=== PATIENT | female | born 1945 | race Caucasian/White ===

== ENCOUNTER 2018-04-09 12:19 | Outpatient (CLI) | payer MEDICARE, MEDICAID | END 2018-04-09 12:20 | disposition home or self-care (01) | LOC: BICMAMMO 12:19 | PROVIDERS: ATTEND Nurse Practitioner Family | DX: Z12.31 Encounter for screening mammogram for malignant neoplasm of breast (principal); R92.1 Mammographic calcification found on diagnostic imaging of breast; Z80.3 Family history of malignant neoplasm of breast; Z98.890 Other specified postprocedural states | CPT/HCPCS: 77063; 77067 ==

== ENCOUNTER 2019-02-20 09:50 | Day surgery (SDC) | payer MEDICARE ==
[2019-02-19 16:08] VITALS: BMI 34.3
[2019-02-20] MEDS ORDERED: Lidocaine 1% (PF) 30 ML VIAL ONE ×2 (10:33→11:48)
[2019-02-20 12:02] LABS: Prothrombin Time 12.8 SEC (12.0-14.7)
[2019-02-20] MEDS ORDERED: Propofol 1,000 MG/100 ML VIAL IV ONE (12:36)
[2019-02-20] MEDS ORDERED: Phenylephrine HCL 10 MG/ML VIAL ONE (12:36)
[2019-02-20] MEDS ORDERED: Fentanyl 100 MCG/2 ML VIAL ONE (12:50)
== END 2019-02-20 16:40 | disposition home or self-care (01) ==
LOC: CCL 09:50
PROVIDERS: ATTEND Internal Medicine Cardiovascular Disease
PROC: 0JPT0PZ Removal of Cardiac Rhythm Related Device from Trunk Subcutaneous Tissue and Fascia, Open Approach (ICD-10-PCS; principal; 2019-02-20)
PROC: 0JH609Z Insertion of Cardiac Resynchronization Defibrillator Pulse Generator into Chest Subcutaneous Tissue and Fascia, Open Approach (ICD-10-PCS; 2019-02-20)
DX: Z45.02 Encounter for adjustment and management of automatic implantable cardiac defibrillator (principal); I11.0 Hypertensive heart disease with heart failure; I50.22 Chronic systolic (congestive) heart failure; I25.5 Ischemic cardiomyopathy; I44.7 Left bundle-branch block, unspecified; I25.10 Atherosclerotic heart disease of native coronary artery without angina pectoris; E11.9 Type 2 diabetes mellitus without complications; Z79.02 Long term (current) use of antithrombotics/antiplatelets; Z79.82 Long term (current) use of aspirin; Z79.899 Other long term (current) drug therapy; Z88.5 Allergy status to narcotic agent; Z88.8 Allergy status to other drugs, medicaments and biological substances; Z91.041 Radiographic dye allergy status; Z95.1 Presence of aortocoronary bypass graft; Z95.5 Presence of coronary angioplasty implant and graft
CPT/HCPCS: 33264; 36416; 85610; 85730; 93641; C1882; J0690; J2001; J2370; J2704; J3010; J3490

== ENCOUNTER 2019-04-22 10:08 | Outpatient (CLI) | payer MEDICAID, MEDICARE ==
--- NOTE | 2019-04-22 11:52 | RAD ---
RIGHT RIBS 2 VIEWS: Date: 04/22/19 HISTORY: Right rib pain. FINDINGS: Arthrosis changes of the AC joint with undersurface spurring of the lateral acromion and arthrosis ch anges of the glenohumeral joint. 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 Slight blunting in t he right costophrenic angle. No pneumothorax or pleural effusion. No overt acute rib fracture. IMPRESSION: 1. No convincing evidence for acute right rib fracture. 2. Evidence for a large gallstone. POS: [facility]
== END 2019-04-22 10:09 | disposition home or self-care (01) ==
LOC: BICRAD 10:08
PROVIDERS: ATTEND Family Medicine
DX: R07.81 Pleurodynia (principal); K80.20 Calculus of gallbladder without cholecystitis without obstruction

== ENCOUNTER 2019-04-29 15:23 | Outpatient (CLI) | payer MEDICARE ==
--- NOTE | 2019-04-29 15:49 | MMO ---
Bilateral MAMMO Bilat Screen [facility]. CLINICAL HISTORY: Patient is 74 years old and is seen for screening. The patient has the following family history of breast cancer: cousin female. The patient has no personal history of cancer. The patient has a history of left Excisional Biopsy in 2004 - fibroadenoma. VIEWS: The views performed were: bilateral craniocaudal with tomosynthesis and bilateral mediolateral oblique with tomosynthesis. FILMS COMPARED: The present examination has been compared to prior imaging studies performed at [facility] on 12/04/2011, 12/11/2012, 12/06/2016 and 04/09/2018. This study has been interpreted with the assistance of computer-aided detection. MAMMOGRAM FINDINGS: The breasts are heterogeneously dense, which could obscure a lesion on mammography. Finding 1: There are stable post operative changes seen in the left breast. Finding 2: There are stable benign appearing calcifications seen in both breasts. There are no suspicious masses, suspicious calcifications, or new areas of architectural distortion. IMPRESSION: THERE IS NO MAMMOGRAPHIC EVIDENCE OF MALIGNANCY. A ROUTINE FOLLOW-UP MAMMOGRAM IN 1 YEAR IS RECOMMENDED. THE RESULTS OF THIS EXAM WERE SENT TO THE PATIENT. ACR BI-RADS Category 2 - Benign finding MAMMOGRAPHY NOTE: 1. A negative mammogram report should not delay a biopsy if a dominant of clinically suspicious mass is present. 2. Approximately 10% to 15% of breast cancers are not detected by mammography. 3. Adenosis and dense breasts may obscure an underlying neoplasm. Reported by: DANI MCFADDEN MD Electonically Signed: [id number]
== END 2019-04-29 15:24 | disposition home or self-care (01) ==
LOC: BICMAMMO 15:23
PROVIDERS: ATTEND Nurse Practitioner Family
DX: Z12.31 Encounter for screening mammogram for malignant neoplasm of breast (principal); Z80.3 Family history of malignant neoplasm of breast
CPT/HCPCS: 77063; 77067

== ENCOUNTER 2022-02-01 21:45 | Observation (INO) | payer OTHER, MEDICAID ==
[2022-02-01 22:30] VITALS: BMI 28.4
[2022-02-01] MEDS ORDERED: Zolpidem Tartrate 5 MG TAB PO SCH (23:45)
[2022-02-02] MEDS ORDERED: Ondansetron PF 4 MG/2 ML Vial IVP PRN (06:09)
[2022-02-02] MEDS ORDERED: Ondansetron ODT 4 MG TAB PO PRN (06:09)
[2022-02-02] MEDS ORDERED: Dextrose 50% Abboject 50 ML SYRINGE SLOW IVP PRN ×2 (06:11)
[2022-02-02] MEDS ORDERED: Dextrose 5% in Water 1,000 ML IV PRN (06:11)
[2022-02-02] MEDS ORDERED: HumaLOG 300 UNITS/3 ML VIAL SC PRN ×3 (06:11)
[2022-02-02 06:41] LABS: #Lymphocytes 0.9 thou/uL (1.20-3.40); #Monocytes 0.1 thou/uL (0.11-0.59); #Neutrophils 4.3 thou/uL (1.40-6.50); %Basophils 0.4 % (0.0-1.0); %Eosinophils 0.2 % (0.0-10.0); %Lymphocytes 16.3 % (21.0-51.0); %Monocytes 1.6 % (0.0-10.0); %Neutrophils 81.5 % (42.0-75.0); Hemoglobin 14.6 g/dL (12.0-16.0); Mean Corpuscular HGB CONC 32.8 g/dL (32.0-36.0); Mean Corpuscular Volume 94.5 fL (78.0-98.0); Mean Platelet Volume 8.2 fL (7.4-10.4); Platelet Count 197 thou/uL (130-400); RBC Distribution Width 11.3 % (11.5-14.5); White Blood Cell (WBC) Count 5.3 thou/uL (4.8-10.8)
[2022-02-02 06:58] LABS: Glucose 539 mg/dL (83-110)
[2022-02-02 07:01] LABS: Anion Gap 19 mmol/L (10-20); BUN (Urea Nitrogen) 26 mg/dL (9.8-20.1); Calc. Creatinine Clearance 32 mL/min (70-130); Carbon Dioxide 25 mmol/L (23-31); Chloride 96 mmol/L (98-107); Estimated GFR 36; Glucose 539 mg/dL (83-110); Potassium 3.7 mmol/L (3.5-5.1); Sodium 136 mmol/L (136-145)
[2022-02-02] MEDS ORDERED: HumaLOG 300 UNITS/3 ML VIAL SC SCH (08:15)
[2022-02-02] MEDS ORDERED: traMADol HCl 50 MG TAB PO PRN (08:16)
[2022-02-02] MEDS ORDERED: Insulin Glargine 30 UNITS/0.3 ML VIAL SC SCH (09:00)
[2022-02-02] MEDS ORDERED: traZODone HCl 50 MG TAB PO SCH (09:00)
[2022-02-02] MEDS ORDERED: Pravastatin Sodium 20 MG TAB PO SCH (09:00)
[2022-02-02] MEDS ORDERED: Lidocaine 5% Patch TD SCH (09:00)
[2022-02-02] MEDS ORDERED: Enoxaparin Sodium 40 MG/0.4 ML SYRINGE SC SCH (09:00)
[2022-02-02] MEDS ORDERED: Clopidogrel Bisulfate 75 MG TAB PO SCH (09:00)
[2022-02-02] MEDS ORDERED: Furosemide 20 MG/2 ML VIAL SLOW IVP SCH (14:00)
[2022-02-02 16:49] VITALS: BP 122/58; TEMP 97.4
[2022-02-02] MEDS ORDERED: Transdermal Patch Removal TOP SCH (21:00)
[2022-02-02] MEDS ORDERED: Atorvastatin Calcium 10 MG TAB PO SCH (21:00)
[2022-02-02] MEDS ORDERED: Aspirin 81 mg Enteric Coated Tablet PO SCH (21:00)
[2022-02-02] MEDS ORDERED: Zolpidem Tartrate 5 MG TAB PO SCH ×2 (21:00)
[2022-02-02] MEDS ORDERED: Enoxaparin Sodium 30 MG/0.3 ML SYRINGE SC SCH (21:00)
== END 2022-02-02 18:42 | disposition home or self-care (01) ==
LOC: 2SW 22:24
PROVIDERS: ADMIT Internal Medicine; ATTEND Internal Medicine
DX: M54.50 Low back pain, unspecified (principal); I11.0 Hypertensive heart disease with heart failure; I50.23 Acute on chronic systolic (congestive) heart failure; E11.65 Type 2 diabetes mellitus with hyperglycemia; I25.10 Atherosclerotic heart disease of native coronary artery without angina pectoris; N17.9 Acute kidney failure, unspecified; E78.5 Hyperlipidemia, unspecified; I08.8 Other rheumatic multiple valve diseases; Z79.02 Long term (current) use of antithrombotics/antiplatelets; Z79.4 Long term (current) use of insulin; Z79.82 Long term (current) use of aspirin; Z79.899 Other long term (current) drug therapy; Z88.5 Allergy status to narcotic agent; Z88.8 Allergy status to other drugs, medicaments and biological substances; Z91.013 Allergy to seafood; Z91.041 Radiographic dye allergy status; Z95.1 Presence of aortocoronary bypass graft; Z95.810 Presence of automatic (implantable) cardiac defibrillator
CPT/HCPCS: 36415; 36416; 80048; 85025; 93306; 96374; G0378; J1815; J1940

== ENCOUNTER 2022-10-08 01:08 | Emergency (ER) | payer OTHER | END 2022-10-08 03:35 | disposition home or self-care (01) | LOC: ERS 01:08 | DX: S83.92XA Sprain of unspecified site of left knee, initial encounter (principal); S93.502A Unspecified sprain of left great toe, initial encounter; I25.10 Atherosclerotic heart disease of native coronary artery without angina pectoris; E11.9 Type 2 diabetes mellitus without complications; E78.5 Hyperlipidemia, unspecified; I10 Essential (primary) hypertension; W18.30XA Fall on same level, unspecified, initial encounter | CPT/HCPCS: 70450; 72125 ==

== ENCOUNTER 2022-10-29 18:08 | Inpatient (IN) | payer OTHER, MEDICAID ==
[2022-10-29 18:57] LABS: #Basophils 0.1 thou/uL (0.0-0.2); #Eosinphils 0.2 thou/uL (0.0-0.7); #Lymphocytes 2.7 thou/uL (1.20-3.40); #Monocytes 0.6 thou/uL (0.11-0.59); #Neutrophils 4.2 thou/uL (1.40-6.50); %Basophils 1.2 % (0.0-1.0); %Lymphocytes 34.5 % (21.0-51.0); %Monocytes 7.7 % (0.0-10.0); %Neutrophils 54.7 % (42.0-75.0); Hemoglobin 14.1 g/dL (12.0-16.0); Mean Corpuscular HGB CONC 32.5 g/dL (32.0-36.0); Mean Corpuscular Hemoglobin 30.3 pg (27.0-31.0); Mean Corpuscular Volume 93.1 fl (78.0-98.0); Mean Platelet Volume 8.2 fL (7.4-10.4); Platelet Count 243 10x3/uL (130-400); Red Blood Cell (RBC) Count 4.65 mill/uL (4.20-5.40); White Blood Cell (WBC) Count 7.8 10x3/uL (4.8-10.8)
[2022-10-29 19:20] LABS: ALT (SGPT) 9 U/L (8-55); AST (SGOT) 17 U/L (5-34); Albumin 3.8 g/dL (3.4-4.8); Alkaline Phosphatase 81 U/L (40-110); Anion Gap 15 mmol/L (10-20); BUN (Urea Nitrogen) 27 mg/dL (9.8-20.1); Bilirubin, Total 0.5 mg/dL (0.2-1.2); Calc. Creatinine Clearance 0 mL/min (70-130); Calcium 9.4 mg/dL (7.8-10.44); Carbon Dioxide 31 mmol/L (23-31); Chloride 97 mmol/L (98-107); Estimated GFR 51; Globulin 4.2 g/dL (2.4-3.5); Glucose 297 mg/dL (83-110); Potassium 4.2 mmol/L (3.5-5.1); Sodium 139 mmol/L (136-145)
[2022-10-29 20:11] LABS: CKMB 1.1 ng/mL (0-6.6)
[2022-10-29] MEDS ORDERED: Furosemide 40 MG/4 ML VIAL ONE (20:42)
[2022-10-29] MEDS ORDERED: Aspirin Chewable 81 MG TAB ONE (20:43)
[2022-10-29] MEDS ORDERED: Zolpidem Tartrate 5 MG TAB PO SCH (21:30)
[2022-10-29 22:33] LABS: Troponin I 0.034 ng/mL (< 0.028)
[2022-10-30 01:58] LABS: Troponin I 0.051 ng/mL (< 0.028)
[2022-10-30] MEDS ORDERED: Ondansetron ODT 4 MG TAB PO PRN (02:20)
[2022-10-30] MEDS ORDERED: Ondansetron PF 4 MG/2 ML Vial IVP PRN (02:20)
[2022-10-30] MEDS ORDERED: Acetaminophen 325 MG TAB PO PRN (02:20)
[2022-10-30 05:31] LABS: #Basophils 0.1 thou/uL (0.0-0.2); #Eosinphils 0.2 thou/uL (0.0-0.7); #Lymphocytes 3.5 thou/uL (1.20-3.40); #Monocytes 0.7 thou/uL (0.11-0.59); #Neutrophils 3.7 thou/uL (1.40-6.50); %Basophils 1.1 % (0.0-1.0); %Eosinophils 2.3 % (0.0-10.0); %Monocytes 8.3 % (0.0-10.0); %Neutrophils 45.3 % (42.0-75.0); Hemoglobin 13.8 g/dL (12.0-16.0); Mean Corpuscular HGB CONC 32.5 g/dL (32.0-36.0); Mean Corpuscular Hemoglobin 30.4 pg (27.0-31.0); Mean Corpuscular Volume 93.6 fl (78.0-98.0); Mean Platelet Volume 8.8 fL (7.4-10.4); Platelet Count 109 10x3/uL (130-400); RBC Distribution Width 11.9 % (11.5-14.5); Red Blood Cell (RBC) Count 4.53 mill/uL (4.20-5.40); White Blood Cell (WBC) Count 8.2 10x3/uL (4.8-10.8)
[2022-10-30] MEDS: Furosemide 40 MG/4 ML VIAL SLOW IVP SCH ×2 (05:50→13:08)
[2022-10-30 06:05] LABS: Anion Gap 18 mmol/L (10-20); BUN (Urea Nitrogen) 26 mg/dL (9.8-20.1); Calc. Creatinine Clearance 64 mL/min (70-130); Calcium 8.7 mg/dL (7.8-10.44); Carbon Dioxide 22 mmol/L (23-31); Chloride 99 mmol/L (98-107); Estimated GFR 75; Glucose 233 mg/dL (83-110); Magnesium 1.7 mg/dL (1.6-2.6); Potassium 4.7 mmol/L (3.5-5.1); Sodium 134 mmol/L (136-145)
[2022-10-30] MEDS ORDERED: Dextrose 5% in Water 1,000 ML IV PRN (06:10)
[2022-10-30] MEDS ORDERED: Dextrose 50% Abboject 50 ML SYRINGE SLOW IVP PRN (06:10)
[2022-10-30] MEDS: HumaLOG 300 UNITS/3 ML VIAL SC PRN ×4 (06:27→21:06)
[2022-10-30] MEDS ORDERED: Pregabalin 50 MG CAP PO SCH ×2 (06:30→15:00)
[2022-10-30] MEDS ORDERED: Gabapentin 300 MG CAP PO SCH (09:30)
[2022-10-30] MEDS: Clopidogrel Bisulfate 75 MG TAB PO SCH (09:50)
[2022-10-30] MEDS: Carvedilol 6.25 MG TAB PO SCH (09:50)
[2022-10-30] MEDS: Insulin Glargine 30 UNITS/0.3 ML VIAL SC SCH (09:51)
[2022-10-30 16:03] LABS: Troponin I 0.045 ng/mL (< 0.028)
[2022-10-30] MEDS: Aspirin 81 mg Enteric Coated Tablet PO SCH (21:07)
[2022-10-30] MEDS: Gabapentin 300 MG CAP PO SCH (21:07)
[2022-10-30] MEDS: Zolpidem Tartrate 5 MG TAB PO SCH (21:07)
[2022-10-30] MEDS: Simvastatin 10 MG TAB PO SCH (21:08)
[2022-10-31 05:25] LABS: #Basophils 0.1 thou/uL (0.0-0.2); #Eosinphils 0.2 thou/uL (0.0-0.7); #Lymphocytes 3.5 thou/uL (1.20-3.40); #Monocytes 0.7 thou/uL (0.11-0.59); #Neutrophils 4.4 thou/uL (1.40-6.50); %Basophils 0.9 % (0.0-1.0); %Eosinophils 2.2 % (0.0-10.0); %Lymphocytes 39.1 % (21.0-51.0); %Monocytes 8.2 % (0.0-10.0); %Neutrophils 49.7 % (42.0-75.0); Mean Corpuscular HGB CONC 33.7 g/dL (32.0-36.0); Mean Corpuscular Hemoglobin 31.4 pg (27.0-31.0); Mean Corpuscular Volume 93.2 fl (78.0-98.0); Mean Platelet Volume 8.1 fL (7.4-10.4); Platelet Count 237 10x3/uL (130-400); Red Blood Cell (RBC) Count 4.45 mill/uL (4.20-5.40); White Blood Cell (WBC) Count 8.9 10x3/uL (4.8-10.8)
[2022-10-31 05:38] LABS: Anion Gap 14 mmol/L (10-20); BUN (Urea Nitrogen) 37 mg/dL (9.8-20.1); Calc. Creatinine Clearance 54 mL/min (70-130); Calcium 9.1 mg/dL (7.8-10.44); Carbon Dioxide 31 mmol/L (23-31); Chloride 98 mmol/L (98-107); Estimated GFR 62; Glucose 165 mg/dL (83-110); Potassium 3.5 mmol/L (3.5-5.1); Sodium 139 mmol/L (136-145)
[2022-10-31] MEDS: HumaLOG 300 UNITS/3 ML VIAL SC PRN ×2 (05:41→17:07)
[2022-10-31] MEDS: Furosemide 40 MG/4 ML VIAL SLOW IVP SCH ×2 (05:41→14:23)
[2022-10-31] MEDS: Insulin Glargine 30 UNITS/0.3 ML VIAL SC SCH (09:38)
[2022-10-31] MEDS: Carvedilol 6.25 MG TAB PO SCH (09:38)
[2022-10-31] MEDS: Clopidogrel Bisulfate 75 MG TAB PO SCH (09:38)
[2022-10-31] MEDS: Gabapentin 300 MG CAP PO SCH ×2 (09:40→21:43)
[2022-10-31] MEDS: Carvedilol 3.125 MG TAB PO SCH (17:07)
[2022-10-31] MEDS: Sacubitril 24MG/Valsartan 26 MG TAB PO SCH (21:43)
[2022-10-31] MEDS: Simvastatin 10 MG TAB PO SCH (21:43)
[2022-10-31] MEDS: Aspirin 81 mg Enteric Coated Tablet PO SCH (21:44)
[2022-10-31] MEDS: Zolpidem Tartrate 5 MG TAB PO SCH (21:44)
[2022-11-01 05:30] LABS: Anion Gap 18 mmol/L (10-20); BUN (Urea Nitrogen) 44 mg/dL (9.8-20.1); Calc. Creatinine Clearance 54 mL/min (70-130); Calcium 8.8 mg/dL (7.8-10.44); Carbon Dioxide 25 mmol/L (23-31); Chloride 98 mmol/L (98-107); Estimated GFR 64; Glucose 174 mg/dL (83-110); Magnesium 2.1 mg/dL (1.6-2.6); Sodium 137 mmol/L (136-145)
[2022-11-01] MEDS: Furosemide 40 MG/4 ML VIAL SLOW IVP SCH ×2 (05:41→14:36)
[2022-11-01] MEDS: Insulin Glargine 30 UNITS/0.3 ML VIAL SC SCH (09:44)
[2022-11-01] MEDS: Gabapentin 300 MG CAP PO SCH ×2 (09:45→20:35)
[2022-11-01] MEDS: Sacubitril 24MG/Valsartan 26 MG TAB PO SCH ×2 (09:45→20:36)
[2022-11-01] MEDS: Clopidogrel Bisulfate 75 MG TAB PO SCH (09:45)
[2022-11-01] MEDS: Empagliflozin 10 MG TAB PO SCH (09:45)
[2022-11-01] MEDS: Carvedilol 3.125 MG TAB PO SCH ×2 (09:45→17:57)
[2022-11-01] MEDS: HumaLOG 300 UNITS/3 ML VIAL SC PRN ×3 (13:02→20:37)
[2022-11-01] MEDS: Zolpidem Tartrate 5 MG TAB PO SCH (20:36)
[2022-11-01] MEDS: Aspirin 81 mg Enteric Coated Tablet PO SCH (20:36)
[2022-11-01] MEDS: Simvastatin 10 MG TAB PO SCH (20:37)
[2022-11-02] MEDS: Furosemide 40 MG/4 ML VIAL SLOW IVP SCH ×2 (05:56→13:22)
[2022-11-02] MEDS: HumaLOG 300 UNITS/3 ML VIAL SC PRN ×2 (06:46→13:22)
[2022-11-02 06:59] LABS: Anion Gap 16 mmol/L (10-20); BUN (Urea Nitrogen) 49 mg/dL (9.8-20.1); Calc. Creatinine Clearance 54 mL/min (70-130); Carbon Dioxide 28 mmol/L (23-31); Chloride 100 mmol/L (98-107); Estimated GFR 63; Glucose 196 mg/dL (83-110); Magnesium 2.2 mg/dL (1.6-2.6); Potassium 3.8 mmol/L (3.5-5.1); Sodium 140 mmol/L (136-145)
[2022-11-02] MEDS: Carvedilol 3.125 MG TAB PO SCH ×2 (08:59→17:15)
[2022-11-02] MEDS: Sacubitril 24MG/Valsartan 26 MG TAB PO SCH ×2 (08:59→20:47)
[2022-11-02] MEDS: Gabapentin 300 MG CAP PO SCH ×2 (08:59→20:46)
[2022-11-02] MEDS: Clopidogrel Bisulfate 75 MG TAB PO SCH (09:00)
[2022-11-02] MEDS: Empagliflozin 10 MG TAB PO SCH (09:00)
[2022-11-02] MEDS: Insulin Glargine 30 UNITS/0.3 ML VIAL SC SCH (09:00)
[2022-11-02] MEDS: Aspirin 81 mg Enteric Coated Tablet PO SCH (20:46)
[2022-11-02] MEDS: Zolpidem Tartrate 5 MG TAB PO SCH (20:46)
[2022-11-02] MEDS: Simvastatin 10 MG TAB PO SCH (20:47)
[2022-11-03] MEDS: Empagliflozin 10 MG TAB PO SCH (08:53)
[2022-11-03] MEDS: Sacubitril 24MG/Valsartan 26 MG TAB PO SCH ×2 (08:53→21:16)
[2022-11-03] MEDS: Insulin Glargine 30 UNITS/0.3 ML VIAL SC SCH (08:54)
[2022-11-03] MEDS: Gabapentin 300 MG CAP PO SCH (08:54)
[2022-11-03] MEDS: Furosemide 40 MG TAB PO SCH (08:54)
[2022-11-03] MEDS: Carvedilol 3.125 MG TAB PO SCH ×2 (08:54→17:03)
[2022-11-03] MEDS: Clopidogrel Bisulfate 75 MG TAB PO SCH (08:54)
[2022-11-03] MEDS: HumaLOG 300 UNITS/3 ML VIAL SC PRN (11:42)
[2022-11-03] MEDS: Simvastatin 10 MG TAB PO SCH (21:15)
[2022-11-03] MEDS: Aspirin 81 mg Enteric Coated Tablet PO SCH (21:15)
[2022-11-04 06:16] VITALS: BMI 30.8
[2022-11-04] MEDS: HumaLOG 300 UNITS/3 ML VIAL SC PRN ×3 (06:20→17:37)
[2022-11-04] MEDS: Insulin Glargine 30 UNITS/0.3 ML VIAL SC SCH (08:18)
[2022-11-04] MEDS: Sacubitril 24MG/Valsartan 26 MG TAB PO SCH ×2 (08:18→22:00)
[2022-11-04] MEDS: Empagliflozin 10 MG TAB PO SCH (08:19)
[2022-11-04] MEDS: Furosemide 40 MG TAB PO SCH (08:19)
[2022-11-04] MEDS: Carvedilol 3.125 MG TAB PO SCH ×2 (08:19→17:30)
[2022-11-04] MEDS: Clopidogrel Bisulfate 75 MG TAB PO SCH (08:19)
[2022-11-04 09:41] LABS: Cardiac Risk 5.4 (Less than 4.5)
[2022-11-04 10:32] LABS: #Lymphocytes 2.3 thou/uL (1.20-3.40); #Neutrophils 8.6 thou/uL (1.40-6.50); %Basophils 0.4 % (0.0-1.0); %Eosinophils 0.3 % (0.0-10.0); %Lymphocytes 19.2 % (21.0-51.0); %Monocytes 8.1 % (0.0-10.0); Hemoglobin 15.7 g/dL (12.0-16.0); Mean Corpuscular HGB CONC 36.9 g/dL (32.0-36.0); Mean Corpuscular Hemoglobin 34.4 pg (27.0-31.0); Mean Corpuscular Volume 93.3 fl (78.0-98.0); Mean Platelet Volume 8.5 fL (7.4-10.4); Platelet Count 250 10x3/uL (130-400); RBC Distribution Width 11.8 % (11.5-14.5); Red Blood Cell (RBC) Count 4.58 mill/uL (4.20-5.40)
[2022-11-04 10:48] LABS: ALT (SGPT) 10 U/L (8-55); AST (SGOT) 17 U/L (5-34); Albumin 3.7 g/dL (3.4-4.8); Alkaline Phosphatase 68 U/L (40-110); Anion Gap 14 mmol/L (10-20); BUN (Urea Nitrogen) 54 mg/dL (9.8-20.1); Bilirubin, Total 0.9 mg/dL (0.2-1.2); Calc. Creatinine Clearance 47 mL/min (70-130); Calcium 9.4 mg/dL (7.8-10.44); Carbon Dioxide 34 mmol/L (23-31); Chloride 100 mmol/L (98-107); Estimated GFR 54; Globulin 4.2 g/dL (2.4-3.5); Glucose 183 mg/dL (83-110); Potassium 3.5 mmol/L (3.5-5.1); Protein, Total 7.9 g/dL (5.8-8.1); Sodium 144 mmol/L (136-145)
[2022-11-04 15:50] LABS: Bilirubin Negative (Negative); Blood, Urine Negative (Negative); CAUTI Indications for Culture Alt mental st,lethar; Clarity Clear (Clear); Glucose, Urine (Dipstick) Greater than 1000 mg/dL (Negative); Ketone, Urine Negative (Negative); Leukocyte 500 Leu/uL (Negative); Nitrite Negative (Negative); Protein, Urine (Dipstick) Negative (Neg-Trace); RBC/HPF 0-3 HPF (0-3); Specific Gravity, Urine 1.015 (1.002-1.036); Squamous Epithelial 0-3 HPF (0-3); Urobilinogen Normal mg/dL (Less than 2)
[2022-11-04 15:53] LABS: Bacteria/HPF 1+ HPF (None Seen)
[2022-11-04 15:55] LABS: Urine Culture Reflex Yes Yes
[2022-11-04] MEDS: Sodium Chloride 0.9% 1,000 ML IV SCH (18:38)
[2022-11-04] MEDS: cefTRIAXone\\ROCEPHIN 1 GM in Sodium Chloride 0.9% 100 ML IVPB SCH (18:38)
[2022-11-04] MEDS: Simvastatin 10 MG TAB PO SCH (22:00)
[2022-11-04] MEDS: Aspirin 81 mg Enteric Coated Tablet PO SCH (22:00)
[2022-11-05] MEDS: Sodium Chloride 0.9% 1,000 ML IV SCH ×2 (06:09→14:32)
[2022-11-05] MEDS: Furosemide 40 MG TAB PO SCH (09:41)
[2022-11-05] MEDS: Carvedilol 3.125 MG TAB PO SCH ×2 (09:41→17:41)
[2022-11-05] MEDS: Empagliflozin 10 MG TAB PO SCH (09:41)
[2022-11-05] MEDS: Clopidogrel Bisulfate 75 MG TAB PO SCH (09:41)
[2022-11-05] MEDS: Sacubitril 24MG/Valsartan 26 MG TAB PO SCH ×2 (09:43→21:35)
[2022-11-05 09:46] LABS: Anion Gap 18 mmol/L (10-20); BUN (Urea Nitrogen) 54 mg/dL (9.8-20.1); Calc. Creatinine Clearance 57 mL/min (70-130); Calcium 8.8 mg/dL (7.8-10.44); Carbon Dioxide 27 mmol/L (23-31); Chloride 106 mmol/L (98-107); Estimated GFR 72; Glucose 188 mg/dL (83-110); Potassium 3.6 mmol/L (3.5-5.1); Sodium 147 mmol/L (136-145)
[2022-11-05] MEDS: Gabapentin 300 MG CAP PO SCH ×2 (09:54→21:35)
[2022-11-05] MEDS: Insulin Glargine 30 UNITS/0.3 ML VIAL SC SCH (12:46)
[2022-11-05] MEDS ORDERED: Dextrose 5 %-0.45 % NaCl 1,000 ML IV SCH (14:00)
[2022-11-05] MEDS: cefTRIAXone\\ROCEPHIN 1 GM in Sodium Chloride 0.9% 100 ML IVPB SCH (17:35)
[2022-11-05] MEDS: HumaLOG 300 UNITS/3 ML VIAL SC PRN ×2 (17:36→23:16)
[2022-11-05] MEDS: Simvastatin 10 MG TAB PO SCH (21:35)
[2022-11-05] MEDS: Zolpidem Tartrate 5 MG TAB PO SCH (21:35)
[2022-11-05] MEDS: Aspirin 81 mg Enteric Coated Tablet PO SCH (21:36)
[2022-11-06 06:20] LABS: Hemoglobin 14.8 g/dL (12.0-16.0); Mean Corpuscular HGB CONC 33.3 g/dL (32.0-36.0); Mean Corpuscular Hemoglobin 31.4 pg (27.0-31.0); Mean Corpuscular Volume 94.5 fl (78.0-98.0); Mean Platelet Volume 8.4 fL (7.4-10.4); Platelet Count 217 10x3/uL (130-400); RBC Distribution Width 11.8 % (11.5-14.5); Red Blood Cell (RBC) Count 4.73 mill/uL (4.20-5.40); White Blood Cell (WBC) Count 8.7 10x3/uL (4.8-10.8)
[2022-11-06] MEDS: HumaLOG 300 UNITS/3 ML VIAL SC PRN ×3 (06:34→19:16)
[2022-11-06 06:39] LABS: Anion Gap 14 mmol/L (10-20); BUN (Urea Nitrogen) 36 mg/dL (9.8-20.1); Calc. Creatinine Clearance 57 mL/min (70-130); Calcium 8.9 mg/dL (7.8-10.44); Carbon Dioxide 24 mmol/L (23-31); Chloride 105 mmol/L (98-107); Estimated GFR 72; Glucose 229 mg/dL (83-110); Potassium 3.2 mmol/L (3.5-5.1); Sodium 140 mmol/L (136-145)
[2022-11-06] MEDS ORDERED: Potassium Chloride 20 MEQ TAB PO SCH (08:30)
[2022-11-06] MEDS: Gabapentin 300 MG CAP PO SCH ×3 (09:10→21:25)
[2022-11-06] MEDS: Furosemide 40 MG TAB PO SCH ×2 (09:10→09:22)
[2022-11-06] MEDS: Sacubitril 24MG/Valsartan 26 MG TAB PO SCH ×3 (09:10→21:26)
[2022-11-06] MEDS: Clopidogrel Bisulfate 75 MG TAB PO SCH ×2 (09:10→09:21)
[2022-11-06] MEDS: Empagliflozin 10 MG TAB PO SCH ×2 (09:10→09:21)
[2022-11-06] MEDS: Carvedilol 3.125 MG TAB PO SCH ×3 (09:10→16:01)
[2022-11-06] MEDS: Insulin Glargine 30 UNITS/0.3 ML VIAL SC SCH (09:11)
[2022-11-06] MEDS ORDERED: Meropenem 1 GM in Sodium Chloride 0.9% 100 ML IVPB SCH (14:00)
[2022-11-06] MEDS: Polyethylene Glycol 3350 17 GM Packet PO PRN (16:01)
[2022-11-06] MEDS: Zolpidem Tartrate 5 MG TAB PO SCH (21:26)
[2022-11-06] MEDS: Simvastatin 10 MG TAB PO SCH (21:26)
[2022-11-06] MEDS: Docusate 100 MG CAP PO PRN (21:27)
[2022-11-06] MEDS ORDERED: Aspirin Chewable 81 MG TAB PO SCH (21:45)
[2022-11-06] MEDS: Meropenem 1 GM in Sodium Chloride 0.9% 100 ML IVPB SCH (23:12)
[2022-11-06] MEDS: Aspirin 81 mg Enteric Coated Tablet PO SCH (23:55)
[2022-11-07] MEDS: Meropenem 1 GM in Sodium Chloride 0.9% 100 ML IVPB SCH ×3 (05:53→21:14)
[2022-11-07 06:09] LABS: Anion Gap 14 mmol/L (10-20); BUN (Urea Nitrogen) 28 mg/dL (9.8-20.1); Calc. Creatinine Clearance 67 mL/min (70-130); Calcium 8.8 mg/dL (7.8-10.44); Carbon Dioxide 27 mmol/L (23-31); Chloride 105 mmol/L (98-107); Estimated GFR 81; Glucose 152 mg/dL (83-110); Potassium 3.6 mmol/L (3.5-5.1); Sodium 142 mmol/L (136-145)
[2022-11-07] MEDS: Gabapentin 300 MG CAP PO SCH ×3 (09:13→21:13)
[2022-11-07] MEDS: Empagliflozin 10 MG TAB PO SCH ×2 (09:14→09:34)
[2022-11-07] MEDS: Furosemide 40 MG TAB PO SCH ×2 (09:14→09:34)
[2022-11-07] MEDS: Carvedilol 3.125 MG TAB PO SCH ×3 (09:14→16:52)
[2022-11-07] MEDS: Sacubitril 24MG/Valsartan 26 MG TAB PO SCH ×3 (09:14→21:14)
[2022-11-07] MEDS: Insulin Glargine 30 UNITS/0.3 ML VIAL SC SCH ×2 (09:14→09:36)
[2022-11-07] MEDS: Clopidogrel Bisulfate 75 MG TAB PO SCH ×2 (09:14→09:34)
[2022-11-07] MEDS: HumaLOG 300 UNITS/3 ML VIAL SC PRN (13:22)
[2022-11-07] MEDS: Zolpidem Tartrate 5 MG TAB PO SCH (21:12)
[2022-11-07] MEDS: Simvastatin 10 MG TAB PO SCH (21:13)
[2022-11-07] MEDS: Aspirin Chewable 81 MG TAB PO SCH (21:13)
[2022-11-07] MEDS: Polyethylene Glycol 3350 17 GM Packet PO PRN (21:27)
[2022-11-08] MEDS: Meropenem 1 GM in Sodium Chloride 0.9% 100 ML IVPB SCH ×3 (05:41→21:18)
[2022-11-08 06:09] LABS: #Basophils 0.1 thou/uL (0.0-0.2); #Eosinphils 0.4 thou/uL (0.0-0.7); #Lymphocytes 2.9 thou/uL (1.20-3.40); #Monocytes 0.8 thou/uL (0.11-0.59); #Neutrophils 5.7 thou/uL (1.40-6.50); %Basophils 0.7 % (0.0-1.0); %Eosinophils 4.1 % (0.0-10.0); %Lymphocytes 29.3 % (21.0-51.0); %Monocytes 8.2 % (0.0-10.0); %Neutrophils 57.7 % (42.0-75.0); Hemoglobin 14.1 g/dL (12.0-16.0); Mean Corpuscular Hemoglobin 31.8 pg (27.0-31.0); Mean Corpuscular Volume 93.7 fl (78.0-98.0); Mean Platelet Volume 8.2 fL (7.4-10.4); Platelet Count 200 10x3/uL (130-400); RBC Distribution Width 11.6 % (11.5-14.5); Red Blood Cell (RBC) Count 4.43 mill/uL (4.20-5.40); White Blood Cell (WBC) Count 9.8 10x3/uL (4.8-10.8)
[2022-11-08 06:27] LABS: Anion Gap 13 mmol/L (10-20); BUN (Urea Nitrogen) 22 mg/dL (9.8-20.1); Calc. Creatinine Clearance 84 mL/min (70-130); Calcium 8.4 mg/dL (7.8-10.44); Carbon Dioxide 27 mmol/L (23-31); Chloride 106 mmol/L (98-107); Estimated GFR 91; Glucose 121 mg/dL (83-110); Potassium 3.6 mmol/L (3.5-5.1); Sodium 142 mmol/L (136-145)
[2022-11-08] MEDS: Sacubitril 24MG/Valsartan 26 MG TAB PO SCH ×2 (09:41→21:18)
[2022-11-08] MEDS: Carvedilol 3.125 MG TAB PO SCH ×2 (09:43→17:16)
[2022-11-08] MEDS: Insulin Glargine 30 UNITS/0.3 ML VIAL SC SCH (09:43)
[2022-11-08] MEDS: Empagliflozin 10 MG TAB PO SCH (09:43)
[2022-11-08] MEDS: Clopidogrel Bisulfate 75 MG TAB PO SCH (09:43)
[2022-11-08] MEDS: Furosemide 40 MG TAB PO SCH (09:43)
[2022-11-08] MEDS: Gabapentin 300 MG CAP PO SCH ×2 (09:46→21:19)
[2022-11-08] MEDS: HumaLOG 300 UNITS/3 ML VIAL SC PRN ×2 (18:53→21:16)
[2022-11-08] MEDS: Polyethylene Glycol 3350 17 GM Packet PO PRN (21:16)
[2022-11-08] MEDS: Zolpidem Tartrate 5 MG TAB PO SCH (21:20)
[2022-11-08] MEDS: Simvastatin 10 MG TAB PO SCH (21:20)
[2022-11-08] MEDS: Aspirin Chewable 81 MG TAB PO SCH (21:20)
[2022-11-09] MEDS: Meropenem 1 GM in Sodium Chloride 0.9% 100 ML IVPB SCH ×3 (05:31→20:56)
[2022-11-09 05:35] LABS: #Basophils 0.1 thou/uL (0.0-0.2); #Eosinphils 0.5 thou/uL (0.0-0.7); #Lymphocytes 3.5 thou/uL (1.20-3.40); #Monocytes 0.9 thou/uL (0.11-0.59); #Neutrophils 7.4 thou/uL (1.40-6.50); %Basophils 0.6 % (0.0-1.0); %Eosinophils 4.3 % (0.0-10.0); %Lymphocytes 28.5 % (21.0-51.0); %Monocytes 7.3 % (0.0-10.0); %Neutrophils 59.4 % (42.0-75.0); Hemoglobin 14.5 g/dL (12.0-16.0); Mean Corpuscular HGB CONC 33.7 g/dL (32.0-36.0); Mean Corpuscular Hemoglobin 31.6 pg (27.0-31.0); Mean Corpuscular Volume 93.8 fl (78.0-98.0); Mean Platelet Volume 8.5 fL (7.4-10.4); Platelet Count 227 10x3/uL (130-400); RBC Distribution Width 11.7 % (11.5-14.5); Red Blood Cell (RBC) Count 4.58 mill/uL (4.20-5.40); White Blood Cell (WBC) Count 12.4 10x3/uL (4.8-10.8)
[2022-11-09] MEDS: HumaLOG 300 UNITS/3 ML VIAL SC PRN ×2 (05:51→14:19)
[2022-11-09 05:57] LABS: Anion Gap 14 mmol/L (10-20); BUN (Urea Nitrogen) 26 mg/dL (9.8-20.1); Calc. Creatinine Clearance 67 mL/min (70-130); Calcium 8.7 mg/dL (7.8-10.44); Carbon Dioxide 27 mmol/L (23-31); Chloride 103 mmol/L (98-107); Estimated GFR 84; Glucose 154 mg/dL (83-110); Potassium 3.6 mmol/L (3.5-5.1); Sodium 140 mmol/L (136-145)
[2022-11-09] MEDS: Lactated Ringer's 500 ML IV SCH ×2 (08:36→17:33)
[2022-11-09] MEDS: Insulin Glargine 30 UNITS/0.3 ML VIAL SC SCH (08:36)
[2022-11-09] MEDS: Gabapentin 300 MG CAP PO SCH ×2 (08:36→21:03)
[2022-11-09] MEDS: Empagliflozin 10 MG TAB PO SCH (08:36)
[2022-11-09] MEDS: Sacubitril 24MG/Valsartan 26 MG TAB PO SCH ×2 (08:36→21:15)
[2022-11-09] MEDS: Carvedilol 3.125 MG TAB PO SCH ×2 (08:36→17:33)
[2022-11-09] MEDS: Clopidogrel Bisulfate 75 MG TAB PO SCH (08:36)
[2022-11-09] MEDS: Furosemide 40 MG TAB PO SCH (08:36)
[2022-11-09] MEDS: Aspirin Chewable 81 MG TAB PO SCH (21:03)
[2022-11-09] MEDS: Zolpidem Tartrate 5 MG TAB PO SCH (21:04)
[2022-11-09] MEDS: Simvastatin 10 MG TAB PO SCH (21:04)
[2022-11-10] MEDS: Meropenem 1 GM in Sodium Chloride 0.9% 100 ML IVPB SCH ×3 (05:54→21:01)
[2022-11-10 06:32] LABS: #Basophils 0.1 thou/uL (0.0-0.2); #Eosinphils 0.6 thou/uL (0.0-0.7); #Lymphocytes 3.7 thou/uL (1.20-3.40); #Monocytes 0.9 thou/uL (0.11-0.59); #Neutrophils 6.2 thou/uL (1.40-6.50); %Basophils 0.8 % (0.0-1.0); %Eosinophils 5.6 % (0.0-10.0); %Lymphocytes 32.1 % (21.0-51.0); %Monocytes 7.7 % (0.0-10.0); %Neutrophils 53.8 % (42.0-75.0); Hemoglobin 14.6 g/dL (12.0-16.0); Mean Corpuscular HGB CONC 34.6 g/dL (32.0-36.0); Mean Corpuscular Hemoglobin 32.3 pg (27.0-31.0); Mean Corpuscular Volume 93.4 fl (78.0-98.0); Mean Platelet Volume 8.7 fL (7.4-10.4); Platelet Count 197 10x3/uL (130-400); RBC Distribution Width 11.6 % (11.5-14.5); Red Blood Cell (RBC) Count 4.51 mill/uL (4.20-5.40); White Blood Cell (WBC) Count 11.4 10x3/uL (4.8-10.8)
[2022-11-10 06:41] LABS: Anion Gap 14 mmol/L (10-20); BUN (Urea Nitrogen) 25 mg/dL (9.8-20.1); Calc. Creatinine Clearance 76 mL/min (70-130); Calcium 8.3 mg/dL (7.8-10.44); Carbon Dioxide 26 mmol/L (23-31); Chloride 104 mmol/L (98-107); Estimated GFR 89; Glucose 109 mg/dL (83-110); Potassium 3.6 mmol/L (3.5-5.1); Sodium 140 mmol/L (136-145)
[2022-11-10] MEDS: Insulin Glargine 30 UNITS/0.3 ML VIAL SC SCH (09:04)
[2022-11-10] MEDS: Gabapentin 300 MG CAP PO SCH ×2 (09:04→21:00)
[2022-11-10] MEDS: Furosemide 40 MG TAB PO SCH (09:04)
[2022-11-10] MEDS: Empagliflozin 10 MG TAB PO SCH (09:04)
[2022-11-10] MEDS: Clopidogrel Bisulfate 75 MG TAB PO SCH (09:05)
[2022-11-10] MEDS: Sacubitril 24MG/Valsartan 26 MG TAB PO SCH ×2 (10:01→21:01)
[2022-11-10] MEDS: Carvedilol 3.125 MG TAB PO SCH ×2 (10:01→16:04)
[2022-11-10] MEDS ORDERED: Sodium Chloride 0.9% 250 ML IV SCH (11:45)
[2022-11-10] MEDS: HumaLOG 300 UNITS/3 ML VIAL SC PRN ×2 (11:54→17:34)
[2022-11-10] MEDS: Simvastatin 10 MG TAB PO SCH (21:00)
[2022-11-10] MEDS: Aspirin Chewable 81 MG TAB PO SCH (21:00)
[2022-11-10] MEDS: Zolpidem Tartrate 5 MG TAB PO SCH (21:00)
[2022-11-11] MEDS: Meropenem 1 GM in Sodium Chloride 0.9% 100 ML IVPB SCH ×3 (05:58→22:48)
[2022-11-11 06:00] LABS: #Basophils 0.1 thou/uL (0.0-0.2); #Eosinphils 0.7 thou/uL (0.0-0.7); #Lymphocytes 3.4 thou/uL (1.20-3.40); #Monocytes 0.8 thou/uL (0.11-0.59); #Neutrophils 5.5 thou/uL (1.40-6.50); %Basophils 0.5 % (0.0-1.0); %Eosinophils 6.9 % (0.0-10.0); %Lymphocytes 32.6 % (21.0-51.0); %Monocytes 7.6 % (0.0-10.0); %Neutrophils 52.3 % (42.0-75.0); Hemoglobin 14.3 g/dL (12.0-16.0); Mean Corpuscular HGB CONC 34.3 g/dL (32.0-36.0); Mean Corpuscular Hemoglobin 31.9 pg (27.0-31.0); Mean Corpuscular Volume 93.2 fl (78.0-98.0); Mean Platelet Volume 8.3 fL (7.4-10.4); Platelet Count 236 10x3/uL (130-400); RBC Distribution Width 11.7 % (11.5-14.5); Red Blood Cell (RBC) Count 4.48 mill/uL (4.20-5.40); White Blood Cell (WBC) Count 10.5 10x3/uL (4.8-10.8)
[2022-11-11 06:42] LABS: ALT (SGPT) 11 U/L (8-55); AST (SGOT) 21 U/L (5-34); Albumin 3.1 g/dL (3.4-4.8); Alkaline Phosphatase 54 U/L (40-110); Anion Gap 15 mmol/L (10-20); BUN (Urea Nitrogen) 21 mg/dL (9.8-20.1); Bilirubin, Total 0.4 mg/dL (0.2-1.2); Calc. Creatinine Clearance 77 mL/min (70-130); Calcium 8.5 mg/dL (7.8-10.44); Carbon Dioxide 27 mmol/L (23-31); Chloride 103 mmol/L (98-107); Estimated GFR 90; Globulin 3.4 g/dL (2.4-3.5); Glucose 139 mg/dL (83-110); Potassium 3.8 mmol/L (3.5-5.1); Protein, Total 6.5 g/dL (5.8-8.1); Sodium 141 mmol/L (136-145)
[2022-11-11] MEDS: Sacubitril 24MG/Valsartan 26 MG TAB PO SCH (08:48)
[2022-11-11] MEDS: Gabapentin 300 MG CAP PO SCH ×2 (08:49→22:51)
[2022-11-11] MEDS: Clopidogrel Bisulfate 75 MG TAB PO SCH (08:49)
[2022-11-11] MEDS: Furosemide 40 MG TAB PO SCH (08:49)
[2022-11-11] MEDS: Carvedilol 3.125 MG TAB PO SCH ×2 (08:49→16:52)
[2022-11-11] MEDS: Empagliflozin 10 MG TAB PO SCH (08:49)
[2022-11-11] MEDS: Insulin Glargine 30 UNITS/0.3 ML VIAL SC SCH (08:50)
[2022-11-11] MEDS: HumaLOG 300 UNITS/3 ML VIAL SC PRN (13:02)
[2022-11-11] MEDS ORDERED: Sacubitril 24MG/Valsartan 26 MG TAB PO SCH (21:00)
[2022-11-11] MEDS: Zolpidem Tartrate 5 MG TAB PO SCH (22:50)
[2022-11-11] MEDS: Aspirin Chewable 81 MG TAB PO SCH (22:50)
[2022-11-11] MEDS: Simvastatin 10 MG TAB PO SCH (22:52)
[2022-11-12] MEDS: Meropenem 1 GM in Sodium Chloride 0.9% 100 ML IVPB SCH (05:41)
[2022-11-12] MEDS: Gabapentin 300 MG CAP PO SCH (08:49)
[2022-11-12] MEDS: Empagliflozin 10 MG TAB PO SCH (08:49)
[2022-11-12] MEDS: Clopidogrel Bisulfate 75 MG TAB PO SCH (08:49)
[2022-11-12] MEDS: Carvedilol 3.125 MG TAB PO SCH ×2 (08:49→17:39)
[2022-11-12] MEDS: Insulin Glargine 30 UNITS/0.3 ML VIAL SC SCH (08:50)
[2022-11-12 08:53] LABS: #Basophils 0.1 thou/uL (0.0-0.2); #Eosinphils 0.5 thou/uL (0.0-0.7); #Lymphocytes 3.3 thou/uL (1.20-3.40); #Monocytes 0.7 thou/uL (0.11-0.59); #Neutrophils 4.2 thou/uL (1.40-6.50); %Eosinophils 5.2 % (0.0-10.0); %Lymphocytes 38.1 % (21.0-51.0); %Monocytes 8.2 % (0.0-10.0); %Neutrophils 47.6 % (42.0-75.0); Hemoglobin 13.8 g/dL (12.0-16.0); Mean Corpuscular HGB CONC 33.8 g/dL (32.0-36.0); Mean Corpuscular Hemoglobin 31.3 pg (27.0-31.0); Mean Corpuscular Hemoglobin 32.4 pg (27.0-31.0); Mean Corpuscular Volume 92.6 fl (78.0-98.0); Mean Corpuscular Volume 92.7 fl (78.0-98.0); Mean Platelet Volume 8.1 fL (7.4-10.4); Mean Platelet Volume 8.2 fL (7.4-10.4); Platelet Count 231 10x3/uL (130-400); Platelet Count 232 10x3/uL (130-400); RBC Distribution Width 11.5 % (11.5-14.5); Red Blood Cell (RBC) Count 4.34 mill/uL (4.20-5.40); White Blood Cell (WBC) Count 8.7 10x3/uL (4.8-10.8)
[2022-11-12 09:12] LABS: ALT (SGPT) 11 U/L (8-55); AST (SGOT) 21 U/L (5-34); Alkaline Phosphatase 50 U/L (40-110); Anion Gap 14 mmol/L (10-20); BUN (Urea Nitrogen) 23 mg/dL (9.8-20.1); Bilirubin, Total 0.5 mg/dL (0.2-1.2); Calc. Creatinine Clearance 83 mL/min (70-130); Calcium 8.6 mg/dL (7.8-10.44); Carbon Dioxide 28 mmol/L (23-31); Chloride 102 mmol/L (98-107); Estimated GFR 91; Globulin 3.4 g/dL (2.4-3.5); Glucose 120 mg/dL (83-110); Potassium 3.9 mmol/L (3.5-5.1); Protein, Total 6.4 g/dL (5.8-8.1); Sodium 140 mmol/L (136-145)
[2022-11-12] MEDS: Furosemide 20 MG TAB PO SCH (10:32)
[2022-11-12] MEDS: HumaLOG 300 UNITS/3 ML VIAL SC PRN (12:39)
[2022-11-12] MEDS ORDERED: Cepastat Lozenges 1 LOZ PO PRN (20:43)
[2022-11-12] MEDS: Simvastatin 10 MG TAB PO SCH (21:20)
[2022-11-12] MEDS: Zolpidem Tartrate 5 MG TAB PO SCH (21:20)
[2022-11-12] MEDS: Aspirin Chewable 81 MG TAB PO SCH (21:20)
[2022-11-13] MEDS: HumaLOG 300 UNITS/3 ML VIAL SC PRN ×3 (06:16→16:55)
[2022-11-13] MEDS: Carvedilol 3.125 MG TAB PO SCH ×2 (08:56→16:50)
[2022-11-13] MEDS: Insulin Glargine 30 UNITS/0.3 ML VIAL SC SCH (08:57)
[2022-11-13] MEDS: Clopidogrel Bisulfate 75 MG TAB PO SCH (08:57)
[2022-11-13] MEDS: Furosemide 20 MG TAB PO SCH (08:57)
[2022-11-13] MEDS: Empagliflozin 10 MG TAB PO SCH (08:57)
[2022-11-13 17:10] LABS: Anion Gap 15 mmol/L (10-20); BUN (Urea Nitrogen) 23 mg/dL (9.8-20.1); Calc. Creatinine Clearance 76 mL/min (70-130); Carbon Dioxide 24 mmol/L (23-31); Chloride 105 mmol/L (98-107); Potassium 4.4 mmol/L (3.5-5.1); Sodium 140 mmol/L (136-145)
[2022-11-13 17:11] LABS: Calcium 8.7 mg/dL (7.8-10.44); Estimated GFR 89; Glucose 135 mg/dL (83-110)
[2022-11-13 17:11] LABS: #Basophils 0.1 thou/uL (0.0-0.2); #Eosinphils 0.3 thou/uL (0.0-0.7); #Lymphocytes 2.8 thou/uL (1.20-3.40); #Monocytes 0.8 thou/uL (0.11-0.59); #Neutrophils 4.1 thou/uL (1.40-6.50); %Basophils 0.9 % (0.0-1.0); %Eosinophils 3.9 % (0.0-10.0); %Lymphocytes 35.1 % (21.0-51.0); %Monocytes 9.4 % (0.0-10.0); %Neutrophils 50.8 % (42.0-75.0); Hemoglobin 14.2 g/dL (12.0-16.0); Mean Corpuscular HGB CONC 32.5 g/dL (32.0-36.0); Mean Corpuscular Hemoglobin 30.7 pg (27.0-31.0); Mean Corpuscular Volume 94.3 fl (78.0-98.0); Mean Platelet Volume 8.6 fL (7.4-10.4); Platelet Count 236 10x3/uL (130-400); RBC Distribution Width 11.8 % (11.5-14.5); Red Blood Cell (RBC) Count 4.62 mill/uL (4.20-5.40); White Blood Cell (WBC) Count 8.1 10x3/uL (4.8-10.8)
[2022-11-13] MEDS: Zolpidem Tartrate 5 MG TAB PO SCH (20:15)
[2022-11-13] MEDS: Aspirin Chewable 81 MG TAB PO SCH (20:16)
[2022-11-13] MEDS: Simvastatin 10 MG TAB PO SCH (20:16)
[2022-11-14] MEDS ORDERED: Ibuprofen 200 MG TAB PO SCH (04:30)
[2022-11-14 05:41] LABS: #Basophils 0.1 thou/uL (0.0-0.2); #Eosinphils 0.2 thou/uL (0.0-0.7); #Lymphocytes 2.6 thou/uL (1.20-3.40); #Monocytes 0.8 thou/uL (0.11-0.59); #Neutrophils 4.7 thou/uL (1.40-6.50); %Basophils 1.3 % (0.0-1.0); %Eosinophils 2.9 % (0.0-10.0); %Lymphocytes 30.6 % (21.0-51.0); %Monocytes 9.9 % (0.0-10.0); %Neutrophils 55.3 % (42.0-75.0); Hemoglobin 15.2 g/dL (12.0-16.0); Mean Corpuscular HGB CONC 33.8 g/dL (32.0-36.0); Mean Corpuscular Hemoglobin 31.2 pg (27.0-31.0); Mean Corpuscular Volume 92.4 fl (78.0-98.0); Platelet Count 221 10x3/uL (130-400); RBC Distribution Width 11.6 % (11.5-14.5); Red Blood Cell (RBC) Count 4.86 mill/uL (4.20-5.40); White Blood Cell (WBC) Count 8.5 10x3/uL (4.8-10.8)
[2022-11-14 06:01] LABS: ALT (SGPT) 15 U/L (8-55); AST (SGOT) 28 U/L (5-34); Albumin 3.2 g/dL (3.4-4.8); Alkaline Phosphatase 52 U/L (40-110); Anion Gap 14 mmol/L (10-20); BUN (Urea Nitrogen) 18 mg/dL (9.8-20.1); Bilirubin, Total 0.5 mg/dL (0.2-1.2); Calc. Creatinine Clearance 78 mL/min (70-130); Calcium 8.9 mg/dL (7.8-10.44); Carbon Dioxide 24 mmol/L (23-31); Chloride 102 mmol/L (98-107); Estimated GFR 90; Globulin 3.8 g/dL (2.4-3.5); Glucose 182 mg/dL (83-110); Potassium 4.4 mmol/L (3.5-5.1); Sodium 136 mmol/L (136-145)
[2022-11-14] MEDS: HumaLOG 300 UNITS/3 ML VIAL SC PRN ×2 (06:10→12:42)
[2022-11-14] MEDS: Clopidogrel Bisulfate 75 MG TAB PO SCH (09:07)
[2022-11-14] MEDS: Insulin Glargine 30 UNITS/0.3 ML VIAL SC SCH (09:08)
[2022-11-14] MEDS: Empagliflozin 10 MG TAB PO SCH (09:08)
[2022-11-14] MEDS: Furosemide 20 MG TAB PO SCH (09:08)
[2022-11-14] MEDS: Carvedilol 3.125 MG TAB PO SCH ×2 (09:08→16:35)
[2022-11-14] MEDS: Gabapentin 300 MG CAP PO SCH ×2 (10:44→21:21)
[2022-11-14] MEDS: Polyethylene Glycol 3350 17 GM Packet PO PRN (13:57)
[2022-11-14] MEDS ORDERED: Fleet Saline Enema 133 ML BOT PR SCH (15:30)
[2022-11-14] MEDS: Zolpidem Tartrate 5 MG TAB PO SCH ×2 (21:21→21:43)
[2022-11-14] MEDS: Simvastatin 10 MG TAB PO SCH ×2 (21:21→21:44)
[2022-11-14] MEDS: Aspirin Chewable 81 MG TAB PO SCH ×2 (21:21→21:44)
[2022-11-15] MEDS: Carvedilol 3.125 MG TAB PO SCH ×2 (09:30→17:01)
[2022-11-15] MEDS: Gabapentin 300 MG CAP PO SCH ×2 (09:30→20:50)
[2022-11-15] MEDS: Furosemide 20 MG TAB PO SCH (09:31)
[2022-11-15] MEDS: Empagliflozin 10 MG TAB PO SCH (09:31)
[2022-11-15] MEDS: Insulin Glargine 30 UNITS/0.3 ML VIAL SC SCH (09:31)
[2022-11-15] MEDS: Clopidogrel Bisulfate 75 MG TAB PO SCH (09:31)
[2022-11-15] MEDS: HumaLOG 300 UNITS/3 ML VIAL SC PRN (11:41)
[2022-11-15] MEDS: Aspirin Chewable 81 MG TAB PO SCH (20:50)
[2022-11-15] MEDS: Simvastatin 10 MG TAB PO SCH (20:51)
[2022-11-15] MEDS: Zolpidem Tartrate 5 MG TAB PO SCH (20:54)
[2022-11-16] MEDS: Clopidogrel Bisulfate 75 MG TAB PO SCH (10:19)
[2022-11-16] MEDS: Gabapentin 300 MG CAP PO SCH ×2 (10:22→21:02)
[2022-11-16] MEDS: Insulin Glargine 30 UNITS/0.3 ML VIAL SC SCH ×2 (10:43→14:40)
[2022-11-16] MEDS: Empagliflozin 10 MG TAB PO SCH (12:52)
[2022-11-16] MEDS: Carvedilol 3.125 MG TAB PO SCH ×2 (12:52→21:02)
[2022-11-16] MEDS: Furosemide 20 MG TAB PO SCH (12:52)
[2022-11-16] MEDS: HumaLOG 300 UNITS/3 ML VIAL SC PRN (18:42)
[2022-11-16] MEDS: Simvastatin 10 MG TAB PO SCH (21:02)
[2022-11-16] MEDS: Aspirin Chewable 81 MG TAB PO SCH (21:02)
[2022-11-16] MEDS: Zolpidem Tartrate 5 MG TAB PO SCH (21:06)
[2022-11-17] MEDS: Docusate 100 MG CAP PO PRN (09:30)
[2022-11-17] MEDS: Clopidogrel Bisulfate 75 MG TAB PO SCH (09:31)
[2022-11-17] MEDS: Furosemide 20 MG TAB PO SCH (09:31)
[2022-11-17] MEDS: Gabapentin 300 MG CAP PO SCH ×2 (09:31→20:56)
[2022-11-17] MEDS: Empagliflozin 10 MG TAB PO SCH (09:32)
[2022-11-17] MEDS: Insulin Glargine 30 UNITS/0.3 ML VIAL SC SCH (09:32)
[2022-11-17] MEDS: Carvedilol 3.125 MG TAB PO SCH ×2 (09:32→18:20)
[2022-11-17] MEDS: HumaLOG 300 UNITS/3 ML VIAL SC PRN ×2 (12:45→21:02)
[2022-11-17] MEDS: Zolpidem Tartrate 5 MG TAB PO SCH (20:55)
[2022-11-17] MEDS: Simvastatin 10 MG TAB PO SCH (20:56)
[2022-11-17] MEDS: Aspirin Chewable 81 MG TAB PO SCH (20:56)
[2022-11-18] MEDS: Clopidogrel Bisulfate 75 MG TAB PO SCH (09:28)
[2022-11-18] MEDS: Insulin Glargine 30 UNITS/0.3 ML VIAL SC SCH (09:29)
[2022-11-18] MEDS: Carvedilol 3.125 MG TAB PO SCH ×2 (09:33→17:48)
[2022-11-18] MEDS: Furosemide 20 MG TAB PO SCH (09:33)
[2022-11-18] MEDS: Empagliflozin 10 MG TAB PO SCH (09:34)
[2022-11-18] MEDS: Gabapentin 300 MG CAP PO SCH ×2 (09:35→20:09)
[2022-11-18] MEDS: HumaLOG 300 UNITS/3 ML VIAL SC PRN (13:00)
[2022-11-18] MEDS: Aspirin Chewable 81 MG TAB PO SCH (20:09)
[2022-11-18] MEDS: Zolpidem Tartrate 5 MG TAB PO SCH (20:09)
[2022-11-18] MEDS: Simvastatin 10 MG TAB PO SCH (20:09)
[2022-11-19] MEDS: Gabapentin 300 MG CAP PO SCH (08:55)
[2022-11-19] MEDS: Furosemide 20 MG TAB PO SCH (08:55)
[2022-11-19] MEDS: Empagliflozin 10 MG TAB PO SCH (08:55)
[2022-11-19] MEDS: Carvedilol 3.125 MG TAB PO SCH (08:55)
[2022-11-19] MEDS: Clopidogrel Bisulfate 75 MG TAB PO SCH (08:56)
[2022-11-19] MEDS: Insulin Glargine 30 UNITS/0.3 ML VIAL SC SCH (08:56)
[2022-11-19 12:05] VITALS: BP 94/56; TEMP 97.5
[2022-11-19] MEDS: HumaLOG 300 UNITS/3 ML VIAL SC PRN (12:10)
== END 2022-11-19 15:05 | DRG 280 ==
LOC: ERS 18:08 → ERHOLD 21:07 → NEURO 22:56
PROVIDERS: ADMIT Student in an Organized Health Care Education/Training Program; ATTEND Hospitalist
DX: I11.0 Hypertensive heart disease with heart failure (principal); I21.A1 Myocardial infarction type 2; G93.41 Metabolic encephalopathy; I50.43 Acute on chronic combined systolic (congestive) and diastolic (congestive) heart failure; N39.0 Urinary tract infection, site not specified; Z16.12 Extended spectrum beta lactamase (ESBL) resistance; Z66 Do not resuscitate; E11.40 Type 2 diabetes mellitus with diabetic neuropathy, unspecified; I25.10 Atherosclerotic heart disease of native coronary artery without angina pectoris; I25.5 Ischemic cardiomyopathy; I42.0 Dilated cardiomyopathy; I44.7 Left bundle-branch block, unspecified; F39 Unspecified mood [affective] disorder; G93.89 Other specified disorders of brain; B96.20 Unspecified Escherichia coli [E. coli] as the cause of diseases classified elsewhere; I95.9 Hypotension, unspecified; Z95.1 Presence of aortocoronary bypass graft; Z88.5 Allergy status to narcotic agent; Z91.041 Radiographic dye allergy status; Z91.013 Allergy to seafood; Z88.8 Allergy status to other drugs, medicaments and biological substances; Z79.4 Long term (current) use of insulin; Z79.899 Other long term (current) drug therapy; Z90.49 Acquired absence of other specified parts of digestive tract; Z90.710 Acquired absence of both cervix and uterus; Z79.01 Long term (current) use of anticoagulants; Z95.810 Presence of automatic (implantable) cardiac defibrillator
CPT/HCPCS: 36415; 36416; 70450; 71045; 80048; 80053; 80061; 81001; 82140; 82553; 83735; 83880; 84484; 85025; 85027; 87040; 87077; 87086; 87186; 93005; 93306; 93798; 94760; 95712; 95819; 95957; 96374; 97139; J0696; J1650; J1815; J1940; J2185; J2405; J3490; J7030; J7042; J7050; J7120